=== PATIENT | male | born 1995 | race Caucasian/White ===

== ENCOUNTER 2020-03-28 15:39 | Emergency (ER) | payer OTHER ==
[~2020-03-28] VITALS: Ht 180.3 cm; Wt 70.3 kg
== END 2020-03-28 20:41 | disposition home or self-care (01) ==
LOC: ER 15:39
DX: N44.2 Benign cyst of testis (principal); N50.811 Right testicular pain

== ENCOUNTER 2023-03-07 19:34 | Emergency (ER) | payer OTHER ==
[~2023-03-07] VITALS: Ht 180.3 cm; Wt 72.6 kg
[2023-03-07] MEDS ORDERED: ESCITALOPRAM OX10 MG PO (20:42)
== END 2023-03-07 23:45 | disposition home or self-care (01) ==
LOC: ER 19:34
DX: S90.111A Contusion of right great toe without damage to nail, initial encounter (principal); W22.8XXA Striking against or struck by other objects, initial encounter; Y93.89 Activity, other specified; Y92.89 Other specified places as the place of occurrence of the external cause